=== PATIENT | female | born 1980 | race Two or more races ===

== ENCOUNTER 2019-10-29 14:02 | Emergency (ER) | payer OTHER ==
[~2019-10-29] VITALS: Ht 152.4 cm; Wt 74.8 kg
[2019-10-29] MEDS ORDERED: NO RECUERDA NOMBRE (14:26)
[2019-10-29] MEDS ORDERED: COZAAR25 MG (14:26)
== END 2019-10-29 18:10 | disposition home or self-care (01) ==
LOC: ER 14:02
DX: J06.9 Acute upper respiratory infection, unspecified (principal); H60.8X1 Other otitis externa, right ear; I10 Essential (primary) hypertension